=== PATIENT | female | born 1995 | race Native Hawaiian/Other Pacific Islander ===

== ENCOUNTER 2021-10-22 08:05 | Outpatient (CLI) | payer BC ==
[~2021-10-22 08:05] MED LIST: CELEXA20 MG PO; METF500T PO
== END 2021-10-22 19:08 | disposition home or self-care (01) ==
LOC: NM 08:05
PROVIDERS: ATTEND Internal Medicine Gastroenterology
DX: R11.0 Nausea (principal)
CPT/HCPCS: A9541

== ENCOUNTER 2021-12-07 11:01 | Outpatient (CLI) | payer BC | END 2021-12-07 19:08 | disposition home or self-care (01) | LOC: US 11:01 | PROVIDERS: ATTEND Nurse Practitioner | DX: R10.11 Right upper quadrant pain (principal) ==